=== PATIENT | female | born 1985 | race Caucasian/White ===

== ENCOUNTER 2018-05-17 15:15 | Emergency (ER) | payer SELFPAY ==
[~2018-05-17] VITALS: Ht 157.5 cm; Wt 68.2 kg
[~2018-05-17 15:15] MED LIST: CIPRO500 MG OR; FLEXERIL OR; LIDODERM5 % EX; LORTAB 5 OR; NAPROSYN500 MG PO; NO HOME MEDS; PENICILLN VK500 MG PO; PROPANOL; PYRIDIUM200 MG OR
[2018-05-17] MEDS ORDERED: AUGMENTIN875TAB PO (16:11)
[2018-05-17] MEDS ORDERED: CYCLOBENZAPR5 MG PO (16:11)
[2018-05-17] MEDS ORDERED: TESSALON PER100 MG PO (16:11)
[2018-05-17 16:22] VITALS: BP 119/84
[2018-05-17] MEDS ORDERED: NO HOME MEDS (16:22)
== END 2018-05-17 16:22 | disposition home or self-care (01) | DRG 153 ==
LOC: ED 15:15
DX: J32.0 Chronic maxillary sinusitis (principal); M54.2 Cervicalgia; M62.830 Muscle spasm of back; R51 Headache; R05 Cough; R09.81 Nasal congestion; H92.09 Otalgia, unspecified ear; F17.210 Nicotine dependence, cigarettes, uncomplicated

== ENCOUNTER 2018-07-15 13:39 | Emergency (ER) | payer SELFPAY ==
[~2018-07-15] VITALS: Ht 157.5 cm; Wt 76.0 kg
[~2018-07-15 13:39] MED LIST changes: +AUGMENTIN875TAB PO; +CYCLOBENZAPR5 MG PO; +TESSALON PER100 MG PO
[2018-07-15 14:03] VITALS: BP 123/73
[2018-07-15] MEDS ORDERED: TORADOL PO (14:08)
== END 2018-07-15 14:10 | disposition home or self-care (01) | DRG 605 ==
LOC: ED 13:39
DX: S00.83XA Contusion of other part of head, initial encounter (principal); S01.81XA Laceration without foreign body of other part of head, initial encounter; W22.8XXA Striking against or struck by other objects, initial encounter; Y92.009 Unspecified place in unspecified non-institutional (private) residence as the place of occurrence of the external cause

== ENCOUNTER 2018-12-25 17:00 | Emergency (ER) | payer SELFPAY ==
[~2018-12-25] VITALS: Ht 157.5 cm; Wt 68.0 kg
[~2018-12-25 17:00] MED LIST changes: +TORADOL PO
[2018-12-25] MEDS ORDERED: PENICILLN VK500 MG PO (17:26)
[2018-12-25 17:30] VITALS: BP 132/84
== END 2018-12-25 17:30 | disposition home or self-care (01) | DRG 159 ==
LOC: ED 17:00
DX: K04.7 Periapical abscess without sinus (principal); F17.210 Nicotine dependence, cigarettes, uncomplicated

== ENCOUNTER 2019-05-09 20:00 | Emergency (ER) | payer SELFPAY ==
[2019-05-09 20:24] VITALS: BP 140/85
== END 2019-05-09 21:30 | disposition left against medical advice (07) | DRG 951 ==
LOC: ED 20:00 → LWOBS 21:30
DX: Z53.21 Procedure and treatment not carried out due to patient leaving prior to being seen by health care provider (principal)

== ENCOUNTER 2019-05-11 | Emergency (ER) | payer SELFPAY ==
[2019-05-11] MEDS ORDERED: LORTAB 1010 MG PO (06:00)
== END 2019-05-11 06:30 | disposition home or self-care (01) | DRG 603 ==
DX: L03.115 Cellulitis of right lower limb (principal); F17.210 Nicotine dependence, cigarettes, uncomplicated; T50.906A Underdosing of unspecified drugs, medicaments and biological substances, initial encounter; Z91.128 Patient's intentional underdosing of medication regimen for other reason

== ENCOUNTER 2019-10-31 15:00 | Emergency (ER) | payer SELFPAY ==
[~2019-10-31] VITALS: Ht 157.5 cm; Wt 84.5 kg
[~2019-10-31 15:00] MED LIST changes: +LORTAB 1010 MG PO
[2019-10-31 15:44] LABS: HEMATOCRIT 36.6 % (37.0-47.0); HEMOGLOBIN 11.6 g/dl (12.0-16.0); IMMATURE GRANULOCYTES 0.3 % (0.0-5.0); MEAN CELL VOLUME 86.1 fL CALC (80.0-100.0); MEAN CORPUSCULAR HGB 27.3 pG CALC (26.0-32.0); MEAN CORPUSCULAR HGB CONC 31.7 g/dL CAL (32.0-36.0); NEUT# 4.09 thou/uL (2.00-7.15); RED BLOOD COUNT 4.25 mill/uL (4.20-5.60); RED CELL DISTRI WIDTH 13.2 % (11.5-15.5)
[2019-10-31 15:54] LABS: URINE BILIRUBIN - DIPSTICK NEGATIVE (NEGATIVE); URINE BLOOD DIPSTICK SMALL (NEGATIVE); URINE COLOR YELLOW; URINE GLUCOSE - DIPSTICK NEGATIVE (NEGATIVE); URINE KETONE NEGATIVE (NEGATIVE); URINE LEUK ESTERASE NEGATIVE (NEGATIVE); URINE NITRITE - DIPSTICK NEGATIVE (Negative); URINE PH 5.5 (4.5-8.0); URINE PROTEIN - DIPSTICK NEGATIVE (NEG-TRACE); URINE SPECIFIC GRAVITY <=1.005; URINE UROBILINOGEN - DIPSTICK 0.2 E.U./dL (0.2)
[2019-10-31 16:08] LABS: URINE SQUAMOUS EPITHELIAL CELL FEW EPI/hpf (0-FEW); URINE WBC 0-2 WBC/hpf (0-5)
[2019-10-31 16:13] LABS: ALBUMIN 4.3 g/dL (3.2-5.0); ALKALINE PHOSPHATASE 62 u/l (38-126); ANION GAP 13 (6-22 (CALC)); BILIRUBIN, TOTAL 0.3 mg/dL (0.0-1.4); BUN 13 mg/dL (7-17); BUN/CREATININE RATIO 16 (12-20 (CALC)); C-REACTIVE PROTEIN 0.5 mg/dL (0-0.9); CARBON DIOXIDE 20 mmol/l (22-30); CHLORIDE 108 mmol/l (95-108); CREATININE 0.8 mg/dL (0.5-1.0); GFR > 60 ML/MIN (>=60 (CALC)); GFR FOR AFR.AMER. > 60 ML/MIN (>=60 (CALC)); POTASSIUM 4.1 mmol/l (3.5-5.1); SGOT/AST 19 u/l (14-36); SODIUM 137 mmol/l (137-146); TOTAL PROTEIN 6.8 g/dL (6.3-8.2)
[2019-10-31 17:18] VITALS: BP 131/75
== END 2019-10-31 17:20 | disposition home or self-care (01) | DRG 761 ==
LOC: ED 15:00
PROVIDERS: Family Medicine
DX: N93.8 Other specified abnormal uterine and vaginal bleeding (principal); M25.50 Pain in unspecified joint; F17.210 Nicotine dependence, cigarettes, uncomplicated; Z97.5 Presence of (intrauterine) contraceptive device

== ENCOUNTER 2020-02-07 16:05 | Emergency (ER) | payer SELFPAY ==
[~2020-02-07] VITALS: Ht 157.5 cm; Wt 81.0 kg
[2020-02-07 17:15] VITALS: BP 113/76
[2020-02-07 17:19] LABS: URINE BILIRUBIN - DIPSTICK NEGATIVE (NEGATIVE); URINE BLOOD DIPSTICK SMALL (NEGATIVE); URINE COLOR YELLOW; URINE GLUCOSE - DIPSTICK NEGATIVE (NEGATIVE); URINE KETONE NEGATIVE (NEGATIVE); URINE LEUK ESTERASE NEGATIVE (NEGATIVE); URINE NITRITE - DIPSTICK NEGATIVE (Negative); URINE PROTEIN - DIPSTICK NEGATIVE (NEG-TRACE); URINE SPECIFIC GRAVITY <=1.005; URINE UROBILINOGEN - DIPSTICK 0.2 E.U./dL (0.2)
[2020-02-07 17:20] LABS: URINE RBC 0-2 RBC/hpf (0-5); URINE SQUAMOUS EPITHELIAL CELL FEW EPI/hpf (0-FEW); URINE WBC 0-2 WBC/hpf (0-5)
[2020-02-07] MEDS ORDERED: DOXYCYCL HYC100 MG PO (17:37)
[2020-02-07] MEDS ORDERED: TERCONAZOLE0.4 % VA (17:37)
== END 2020-02-07 17:47 | disposition home or self-care (01) | DRG 759 ==
LOC: ED 16:05
PROVIDERS: Student in an Organized Health Care Education/Training Program
DX: B37.3 Candidiasis of vulva and vagina (principal); F17.210 Nicotine dependence, cigarettes, uncomplicated

== ENCOUNTER 2020-09-28 17:24 | Emergency (ER) | payer SELFPAY ==
[~2020-09-28] VITALS: Ht 157.5 cm; Wt 84.0 kg
[~2020-09-28 17:24] MED LIST changes: +DOXYCYCL HYC100 MG PO; +TERCONAZOLE0.4 % VA
[2020-09-28 19:54] LABS: URINE BILIRUBIN - DIPSTICK NEGATIVE (NEGATIVE); URINE BLOOD DIPSTICK TRACE-INTACT (NEGATIVE); URINE COLOR YELLOW; URINE GLUCOSE - DIPSTICK NEGATIVE (NEGATIVE); URINE KETONE NEGATIVE (NEGATIVE); URINE LEUK ESTERASE NEGATIVE (NEGATIVE); URINE PROTEIN - DIPSTICK NEGATIVE (NEG-TRACE); URINE SPECIFIC GRAVITY <=1.005; URINE UROBILINOGEN - DIPSTICK 0.2 E.U./dL (0.2)
[2020-09-28 19:57] LABS: URINE NITRITE - DIPSTICK NEGATIVE (Negative)
[2020-09-28 19:57] LABS: HEMATOCRIT 41.9 % (37.0-47.0); HEMOGLOBIN 13.3 g/dl (12.0-16.0); IMMATURE GRANULOCYTES 0.1 % (0.0-5.0); MEAN CELL VOLUME 88.2 fL CALC (80.0-100.0); MEAN CORPUSCULAR HGB CONC 31.7 g/dL CAL (32.0-36.0); NEUT# 7.51 thou/uL (2.00-7.15); RED BLOOD COUNT 4.75 mill/uL (4.20-5.60)
[2020-09-28 20:20] LABS: ALBUMIN 4.2 g/dL (3.2-5.0); ALKALINE PHOSPHATASE 58 u/l (38-126); AMYLASE 68 u/l (30-110); ANION GAP 13 (6-22 (CALC)); BILIRUBIN, TOTAL 0.4 mg/dL (0.0-1.4); BUN 13 mg/dL (7-17); BUN/CREATININE RATIO 17 (12-20 (CALC)); CARBON DIOXIDE 22 mmol/l (22-30); CHLORIDE 107 mmol/l (95-108); CPK 85 u/l (30-165); CREATININE 0.8 mg/dL (0.5-1.0); GFR > 60 ML/MIN (>=60 (CALC)); GFR FOR AFR.AMER. > 60 ML/MIN (>=60 (CALC)); LIPASE 141 u/l (23-300); MAGNESIUM 2.1 mg/dL (1.6-2.3); POTASSIUM 4.6 mmol/l (3.5-5.1); SGOT/AST 29 u/l (14-36); SODIUM 137 mmol/l (137-146); TOTAL PROTEIN 7.4 g/dL (6.3-8.2)
[2020-09-28 20:23] LABS: ACT PARTIAL THROMBO TIME 25.6 SECONDS (20.0-32.5); INTERNATIONAL NORMALIZED RATIO 0.9 RATIO (0.7-1.3); PROTHROMBIN TIME 9.6 SECONDS (9.0-12.5)
[2020-09-28 20:27] LABS: MYOGLOBIN 16 ng/mL (0 - 62)
[2020-09-28 20:32] LABS: D-DIMER 0.17 mg/L (0.19-0.60)
[2020-09-28 20:49] LABS: TSH, 3RD GENERATION 1.23 uIU/mL (0.47 - 4.68)
[2020-09-28 21:45] VITALS: BP 134/78
== END 2020-09-28 21:46 | disposition home or self-care (01) | DRG 948 ==
LOC: ED 17:24
PROVIDERS: Family Medicine
DX: R53.1 Weakness (principal); M25.50 Pain in unspecified joint; F17.200 Nicotine dependence, unspecified, uncomplicated; Z20.822 Contact with and (suspected) exposure to COVID-19
CPT/HCPCS: Q9967

== ENCOUNTER 2022-03-24 14:28 | Emergency (ER) | payer OTHER ==
[2022-03-24] VITALS (9 sets, daily range): BP systolic 110–129; BP diastolic 68–90
[~2022-03-24] VITALS: Ht 157.5 cm; Wt 74.0 kg
[2022-03-24] MEDS ORDERED: FLEXERIL5 M1 PO (14:51)
[2022-03-24] MEDS ORDERED: PAROXETINE20 MG PO (14:51)
== END 2022-03-24 16:50 | disposition home or self-care (01) | DRG 93 ==
LOC: ED 14:28
DX: R20.2 Paresthesia of skin (principal); R51.9 Headache, unspecified; E78.00 Pure hypercholesterolemia, unspecified; F17.200 Nicotine dependence, unspecified, uncomplicated

== ENCOUNTER 2024-03-19 17:45 | Observation (INO) | payer OTHER ==
[~2024-03-19] VITALS: Ht 157.5 cm; Wt 76.6 kg
[2024-03-19] VITALS (7 sets, daily range): BP systolic 94–113; BP diastolic 63–74
[~2024-03-19 17:45] MED LIST changes: +FLEXERIL5 M1 PO; +PAROXETINE20 MG PO; +PROMETHAZINE HY25 M1 PO
[2024-03-19 20:12] LABS: URINE BILIRUBIN - DIPSTICK Negative (NEGATIVE); URINE BLOOD DIPSTICK Negative (NEGATIVE); URINE GLUCOSE - DIPSTICK Negative (NEGATIVE); URINE KETONE Negative (NEGATIVE); URINE LEUK ESTERASE Negative (NEGATIVE); URINE NITRITE - DIPSTICK Negative (Negative); URINE PROTEIN - DIPSTICK Negative (NEG-TRACE); URINE SPECIFIC GRAVITY 1.015; URINE UROBILINOGEN - DIPSTICK 0.2 E.U./dL (0.2)
[2024-03-19 20:13] LABS: URINE COLOR Yellow
[2024-03-19] MEDS ORDERED: MAGNESIUM HYDROXIDE 30 ML UDC PO PRN (21:10)
[2024-03-19] MEDS ORDERED: Zaleplon 5 MG/CAP PO PRN (21:10)
[2024-03-19] MEDS ORDERED: ACETAMINOPHEN 325 MG/TAB PO PRN (21:10)
[2024-03-20] MEDS ORDERED: ABILIFY5 MG PO (01:50)
[2024-03-20] MEDS ORDERED: KLONOPIN1 MG PO (01:52)
[2024-03-20] MEDS ORDERED: CYMBALTA30 MG PO (01:54)
[2024-03-20] MEDS ORDERED: VITAMIN D7 XX (01:59)
[2024-03-20] MEDS ORDERED: TYLENOL500 MG PO (02:07)
[2024-03-20 03:57] VITALS: BP 107/56
[2024-03-20 05:05] LABS: BASO% 0.7 % (0-3); EOS% 4.6 % (0-8); HEMATOCRIT 39.8 % (37.0-47.0); HEMOGLOBIN 12.9 g/dl (12.0-16.0); IMMATURE GRANULOCYTES 0.5 % (0.0-5.0); LYMPH% 27.3 % (15-41); MEAN CELL VOLUME 88.8 fL CALC (80.0-100.0); MEAN CORPUSCULAR HGB 28.8 pG CALC (26.0-32.0); MEAN CORPUSCULAR HGB CONC 32.4 g/dL CAL (32.0-36.0); MONO% 7.3 % (2-13); NEUT# 6.73 thou/uL (2.00-7.15); NEUT% 59.6 % (42-76); RED BLOOD COUNT 4.48 mill/uL (4.20-5.60); RED CELL DISTRI WIDTH 14.3 % (11.5-15.5)
[2024-03-20 05:21] LABS: ALBUMIN 3.5 g/dL (3.2-5.0); BILIRUBIN, TOTAL 0.3 mg/dL (0.02-1.3); CREATININE 0.9 mg/dL (0.5-1.0); POTASSIUM 4.2 mmol/l (3.5-5.1)
[2024-03-20 06:50] VITALS: BP 101/64
[2024-03-20] MEDS ORDERED: [UNRECOGNIZED DRUG - OTHER] PO (14:27)
[2024-03-20] MEDS ORDERED: [UNRECOGNIZED DRUG - REMARK] (14:38)
[2024-03-20] MEDS ORDERED: ACETAMINOPHEN325 MG PO (14:39)
[2024-03-20 14:44] VITALS: BP 102/52
[2024-03-20] MEDS ORDERED: GADOPICLENOL (VUEWAY) 0.5 MM/ML 3.75MM/7.5ML VIAL IV ONE ×2 (15:00)
[2024-03-20 16:26] LABS: TSH, 3RD GENERATION 2.02 uIU/mL (0.47 - 4.68)
[2024-03-20 18:15] VITALS: BP 105/64
[2024-03-20 18:30] VITALS: BP 105/64
[2024-03-20] MEDS ORDERED: ENOXAPARIN SODIUM 40 MG/0.4 ML SYR SC SCH (21:00)
== END 2024-03-20 18:35 | disposition home or self-care (01) | DRG 948 ==
LOC: ED 17:45 → ED-I 19:39 → ED 21:08 → MS2 21:08
PROVIDERS: Family Medicine; Nurse Practitioner Family; Psychiatry & Neurology Neurology; ADMIT Internal Medicine; ATTEND Internal Medicine
DX: R41.0 Disorientation, unspecified (principal); R47.01 Aphasia; R42 Dizziness and giddiness; R41.3 Other amnesia; R55 Syncope and collapse; M62.838 Other muscle spasm; F41.9 Anxiety disorder, unspecified; F32.A Depression, unspecified; F17.200 Nicotine dependence, unspecified, uncomplicated; Z63.4 Disappearance and death of family member; Z73.3 Stress, not elsewhere classified; Z79.899 Other long term (current) drug therapy
CPT/HCPCS: A9579; G0378